=== PATIENT | male | born 1985 | race Caucasian/White ===

== ENCOUNTER 2017-03-08 18:13 | Emergency (ER) | payer BC ==
[~2017-03-08] VITALS: Ht 177.8 cm; Wt 94.8 kg
[~2017-03-08 18:13] MED LIST: LISI-363 PO; NOVOLOGP2 SQ
[2017-03-08 18:22] VITALS: BP 146/93; PULSE 97; RESP 16; TEMP 98.4; O2SAT 99
[2017-03-08] MEDS ORDERED: LANTUS2P SQ (18:33)
[2017-03-08] MEDS ORDERED: NOVOLOGP2 SQ (18:33)
[2017-03-08] MEDS ORDERED: LISI-515 PO (18:33)
[2017-03-08] MEDS ORDERED: THYROID MED (18:33)
[2017-03-08] MEDS ORDERED: LIDOCAINE 1%/EPINEPHrine 1:100,000 SOLN 20 ML VIAL INFIL ONE (19:00)
[2017-03-08] MEDS ORDERED: BACT800T5 PO (19:32)
--- NOTE | 2017-03-08 19:34 | PD ---
HPI Chief Complaint: Skin Problem Time Seen by Provider: 19:00 Travel History International Travel<30 days: No Contact w/Intl Traveler<30days: No Traveled to known affect area: No History of Present Illness HPI 31-year-old male presents to the emergency room for evaluation of a painful lesion to his buttocks that has been present for the past week. Patient states he thought was a bruise because he fell on his buttocks 2 months ago. He has been taking ibuprofen without significant relief in symptoms. Pain and swelling has been worsening over the last week. Pain is exacerbated with sitting or any pressure to the area. He denies drainage, fever, chills, nausea , and vomiting. Patient reports history of diabetes, hypertension, and thyroid disease. PFSH Past Medical History Cardiovascular Problems: Yes (htn on meds) Diabetes: Yes (type 1) Patient Takes Glucophage: Yes Diminished Hearing: No Hypertension: Yes Thyroid Disease: Yes Past Surgical History Body Medical Devices: INSULIN PUMP Social History Alcohol Use: Yes (BEER 3-4X WK) Tobacco Use: Yes (1/2PPD) Substance Use: No Allergies-Medications (Allergen,Severity, Reaction): Coded Allergies: No Known Allergies (Verified , 03/08/17) Reported Meds & Prescriptions Reported Meds & Active Scripts Active Bactrim DS (Sulfamethoxazole-Trimethoprim) 800-160 Mg Tab 1 Tab PO BID Reported [Thyroid Med] Lisinopril 20 Mg Tab 20 Mg PO DAILY Lantus Inj (Insulin Glargine) 1,000 Unit/10 Ml Vial 40 Units SQ HS Novolog Inj (Insulin Aspart) 1,000 Unit/10 Ml Vial 0 SQ DIRECTED Sliding Scale as directed. Review of Systems Except as stated in HPI: all other systems reviewed are Neg Physical Exam Narrative GENERAL: Well-nourished, well-developed male in no acute distress. Afebrile. Ambulatory. SKIN: Focused skin assessment warm/dry. There is an indurated area in the inner gluteal cleft which measures about 2 cm in diameter. It is fluctuant but there is no pointing or drainage. There is a zone of inflammation around it but no lymphangitis. HEAD: Normocephalic. EYES: No scleral icterus. No injection or drainage. NECK: Supple, trachea midline. No JVD or lymphadenopathy. CARDIOVASCULAR: Regular rate and rhythm without murmurs, gallops, or rubs. RESPIRATORY: Breath sounds equal bilaterally. No accessory muscle use. PSYCHIATRIC: No delusional thought processes. No hallucinations. Data Data Last Documented VS Vital Signs Date Time Temp Pulse Resp B/P Pulse Ox O2 Delivery O2 Flow Rate FiO2 03/08/17 18:22 98.4 97 16 146/93 99 Orders Lidocai-Epi 1%-1:100,000 Inj (Xylocaine- (03/08/17 19:00) Wound Culture And Gram Stain (03/08/17 19:31) [facility] Medical Decision Making Medical Screen Exam Complete: Yes Emergency Medical Condition: Yes Medical Record Reviewed: Yes Differential Diagnosis Pilonidal abscess versus cyst versus cellulitis Narrative Course 31-year-old male presents to the emergency room for evaluation of a painful, swollen, red lesion to his buttocks that has been present for one week. Physical exam reveals a pilonidal abscess. No systemic signs of infection. Vital signs stable. Patient resting comfortably in bed. Abscess was drained, see procedure note for details. Patient discharged Bactrim and told to follow up with primary care physician or return to the emergency room for worsening symptoms. He understands and agrees to plan. Procedures Procedure Narrative INCISION AND DRAINAGE OF ABSCESS: The area was prepped and was sterilely draped. A subcutaneous wheal of 1% lidocaine with epinephrine with a total number 2 mL was used to anesthetize the area properly. A number 11 scalpel was used to make a 1 cm incision across the area of the abscess. The abscess was drained, complex loculations were broken down, and irrigated with normal saline. Cultures were obtained. Quarter inch iodoform packing was placed in the wound. Sterile dressing applied. Patient advised to have packing removed in two days. Diagnosis Primary Impression: Pilonidal abscess Referrals: Primary Care Physician Patient Instructions: Abscess (ED), General Instructions Additional Instructions: Rest and drink plenty of fluids. Take Bactrim as directed, until gone. Return to the emergency room in 2 days to have packing removed. If it falls out before, this is okay. Follow up with a primary care physician. Return to emergency room for worsening symptoms, as discussed. Med/Other Pt SpecificInfo: Prescription(s) given Scripts Sulfamethoxazole-Trimethoprim (Bactrim DS)800-160 Mg Tab1 Tab PO BID #20 TAB Ref 0 Prov:Caroline Robin DO 03/08/17 Disposition: 01 DISCHARGE HOME Condition: Stable Liana Barclay March 08, 2017 19:34
== END 2017-03-08 19:43 | disposition home or self-care (01) ==
LOC: PHEFT 18:13
DX: L05.01 Pilonidal cyst with abscess (principal); I10 Essential (primary) hypertension; E10.9 Type 1 diabetes mellitus without complications; E07.9 Disorder of thyroid, unspecified; F17.200 Nicotine dependence, unspecified, uncomplicated; Z79.4 Long term (current) use of insulin; Z79.899 Other long term (current) drug therapy
CPT/HCPCS: 10080; 87070; 87185; 87205